=== PATIENT | male | born 1950 | race Caucasian/White ===

== ENCOUNTER → 2023-02-20 | Outpatient (CLI) | payer OTHER ==
[~2023-02-20] MED LIST: GADOTERATE 0.5 MMOL/ML (CLARISCAN) 20 ML VIAL IV ONE
--- NOTE | 2023-02-20 11:04 | Diagnostic Imaging Report ---
EXAMINATION: MRI of the abdomen with and without contrast. TECHNIQUE: Multiplanar, multisequence MR images of the abdomen were obtained with and without intravenous contrast. HISTORY: Renal lesion evaluation COMPARISON: None available. FINDINGS: Liver: There is diffuse loss of signal on out of phase images compatible with hepatic steatosis. No suspicious hepatic lesion. The hepatic and portal veins are patent. Gallbladder and Bile Ducts: The gallbladder is unremarkable without filling defect. There is no intrahepatic or extrahepatic bile duct dilation. There are no filling defects within the biliary tree. Pancreas: The pancreas is normal in volume, signal intensity and enhancement. There is no dilation of the main pancreatic duct. Spleen: The spleen is normal in size without focal lesion. Adrenal glands: There is a left adrenal nodule measuring up to 1.8 cm with loss of signal on out of phase images compatible with adrenal adenoma. Kidneys: There is a thick-walled cystic structure within the left kidney measuring 5.4 cm. No suspicious solid or enhancing component is seen. There is some restricted diffusion. There is a 1.6 cm hyperdense lesion within the right kidney which demonstrates what appears to be septal or internal enhancement. This lesion is T2 hypointense. Additional subcentimeter renal cysts are present. Lymph Nodes: There is no suspicious lymphadenopathy. Other: There is no ascites. IMPRESSION: 1. A 1.6 cm enhancing lesion within the right mid kidney concerning for renal neoplasm. 2. A thick-walled cystic structure within the left kidney without suspicious solid or enhancing component. Recommend continued MRI surveillance. 3. Hepatic steatosis. 4. A 1.8 cm left adrenal adenoma. Dictated by: Dictated on workstation # [id number]
== END ==
LOC: RAD 08:32
PROVIDERS: ATTEND Specialist
DX: D35.02 Benign neoplasm of left adrenal gland (principal); N28.1 Cyst of kidney, acquired; K76.0 Fatty (change of) liver, not elsewhere classified
CPT/HCPCS: 74183